=== PATIENT | male | born 1985 | race Caucasian/White ===

== ENCOUNTER 2017-12-22 22:41 | Inpatient (IN) ==
[2017-12-22] MEDS ORDERED: Ondansetron 4 MG/2 ML VIAL IVP ONE (23:01)
[2017-12-22] MEDS ORDERED: 0.9 % Sodium Chloride 1,000 ML IVC ONE (23:01)
[2017-12-22] MEDS ORDERED: Pantoprazole 40 MG VIAL IVP ONE (23:02)
[2017-12-22] MEDS ORDERED: GI Cocktail 40 ML EACH PO ONE (23:02)
--- NOTE | 2017-12-22 23:05 | Emergency Department Note ---
Disposition Clinical Impression: Jaundice, Transaminitis, Hepatitis Abdominal pain Qualifiers: Abdominal location: epigastric Qualified Code(s): R10.13 - Epigastric pain Pancreatitis Qualifiers: Chronicity: acute Pancreatitis type: unspecified pancreatitis type Acute pancreatitis complication: unspecified Qualified Code(s): K85.90 - Acute pancreatitis without necrosis or infection, unspecified Disposition: Admitted As Inpatient Condition: Fair Referrals: NONE,PCP [Primary Care Provider] - Forms: ED Satisfaction Letter, Work/School Release Time of Disposition: 01:07 Abdominal Pain HPI - General Chief Complaint: ED Abdominal Pain Stated Complaint: abdominal pain Time Seen by Provider: 12/22/17 22:50 Source: patient, family Mode of arrival: ambulatory Limitations: no limitations Nursing Notes Reviewed: Yes Vital Signs Reviewed: Yes - History of Present Illness HPI Narrative: 31-year-old male presents for evaluation of abdominal pain. Patient states symptom onsets been over the past 4 days. Patient states nausea vomiting for the past 2 days. Pain is primarily in the epigastrium and does not radiate. Patient denies any diarrhea or constipation. No change in stool color. No chest pain. No fevers. Family states the patient has had yellowing of the face and eyes over the past 3 days. No history of hepatitis. No change in food groups or recent ill contacts. Patient denies history of hepatitis B or C. Does report a history of IV drug use in the past. No history of alcoholism. Patient also states he has history of ulcers in the past but has not followed up with his primary care doctor. Pain Scale: 9 - Related Data Allergies Allergy/AdvReac Type Severity Reaction Status Date / Time No Known Allergies Allergy Verified 12/22/17 22:43 All systems ED: reviewed and negative except as stated. Constitutional: Denies: fever Cardiovascular: Denies: chest pain Respiratory: Denies: cough, dyspnea Gastrointestinal: Reports: abdominal pain, nausea, vomiting. Denies: diarrhea, constipation Abdominal Pain PMH - Past Medical History Medical history: Reports: no medical history Male Surgical History: Reports: herniorrhaphy Psychiatric history: Reports: no psych history - Social History Smoking status: Current every day smoker Alcohol use: Reports: none Drug use: Reports: none Physical Exam - General Limitations: no limitations General appearance: alert, in no apparent distress - Head Head exam: atraumatic, normocephalic, normal inspection - Eye Eye exam: Present: normal appearance, PERRL, EOMI, scleral icterus - ENT ENT exam: normal exam, normal oropharynx, mucous membranes moist, other (Periorbital jaundice) - Neck Neck exam: Present: normal inspection - Chest Chest inspection: Present: normal inspection, symmetric chest wall rise - Respiratory Respiratory exam: Present: normal lung sounds bilaterally. Absent: respiratory distress - Cardiovascular Cardiovascular exam: Present: regular rate, normal rhythm. Absent: systolic murmur - Abdominal Exam Abdominal exam: Present: soft, tenderness. Absent: guarding, rebound - Extremities Exam Extremities exam: Present: normal inspection. Absent: pedal edema - Expanded Lower Extremity Exam Neurovascular/Tendon exam: Present: normal capillary refill - Back Exam Back exam: Present: normal inspection - Neurological Exam Neurological exam: Present: alert, oriented X3, CN II-XII intact - Skin Skin exam: Present: warm, dry, intact, normal color Course Course Narrative: Patient presents for evaluation of abdominal pain. Patient will get basic labs including a hepatic panel as well as a viral hepatitis panel. We will also get symptomatic treatment with a GI cocktail, Zofran upper convex. Disposition pending. - Reevaluation(s) Reevaluation #1: Patient's repeat abdominal exam is unremarkable. Patient's updated on labs and continued evaluation with a gallbladder ultrasound. Time: 00:11 Reevaluation #2: Patient seen and examined. Patient repeat exam is unremarkable. Patient was updated on the fact that he does have hepatitis A and hepatitis C. Patient is agreeable with admission Time: 01:22 Vital Signs Temperature 97.7 F 12/22/17 22:43 Pulse Rate 104 12/22/17 22:43 Respiratory Rate 16 12/22/17 22:43 Blood Pressure 126/89 12/22/17 22:43 O2 Sat by Pulse Oximetry 99 12/22/17 22:43 Temperature 97.7 F 12/22/17 22:43 Pulse Rate 94 12/23/17 00:23 Respiratory Rate 18 12/23/17 00:23 Blood Pressure 146/87 12/23/17 00:23 O2 Sat by Pulse Oximetry 100 12/23/17 00:23 Oxygen Delivery Oxygen Delivery Room Air Abdominal Pain - MDM Narrative Medical decision making narrative: Patient presented for concerns of epigastric and right upper quadrant pain patient's labs are consistent with elevated bilirubin in the setting of pancreatitis. Given the patient's transaminitis elevated bilirubin and pancreatitis the patient will get a gallbladder ultrasound to rule out any obstructive pathology. Would also rule out any evidence of acute cholecystitis. Patient was treated with IV fluids antiemetics and pain control. Patient's labs show hepatitis A as well as hepatitis C. Patient's hep C likely secondary to his IV drug use and tattoos. Patient's ultrasound is consistent with acute viral hepatitis. Patient does not appear to have acute cholecystitis given his degree of inflammation with the transaminitis. Patient will likely require admission for pain control and monitoring of his transaminitis and pancreatitis. - Lab Data Lab results reviewed: Yes I reviewed the patient's lab results. Result diagrams: 12/22/17 23:01 12/22/17 23:01 Lab Results 12/22/17 12/22/17 12/22/17 Range/Units 23:01 23:01 23:02 WBC 7.6 (4.3-11.1) K/mcL RBC 5.41 (4.19-5.50) M/mcL Hgb 14.9 (12.9-16.9) g/dL Hct 43.2 (37.5-50.1) % MCV 79.9 L (83.0-100.0) fL MCH 27.5 L (28.0-33.3) pg MCHC 34.5 (31.6-35.5) g/dL RDW 15.2 H (11.5-14.5) % Plt Count 228 (140-400) K/mcL MPV 10.1 (9.4-12.4) fL Immature Gran % 0.3 (0-4) % Seg Neutrophils % 74.7 % Lymphocytes % 15.9 % Monocytes % 7.3 % Eosinophils % 1.5 % Basophils % 0.3 % Neutrophils # 5.7 (1.6-8.9) K/mcL Lymphocytes # 1.2 (0.6-4.6) K/mcL Monocytes # 0.6 (0.0-1.3) K/mcL Eosinophils # 0.1 (0.0-0.6) K/mcL Basophils # 0.0 (0.0-0.2) K/mcL Sodium 134 L (136-145) mEq/L Potassium 3.3 L (3.5-5.1) mEq/L Chloride 99 (98-107) mEq/L Carbon Dioxide 26 (23-29) mEq/L BUN 10 (6-20) mg/dL Creatinine 0.71 (0.70-1.30) mg/dL Est GFR ( Amer) > 60 (> 60) Est GFR (Non-Af Amer) > 60 (> 60) BUN/Creatinine Ratio 14 (6-26) Glucose 126 H (70-105) mg/dL Calculated Osmolality 279 L (280-300) Calcium 9.1 (8.6-10.3) mg/dL Total Bilirubin 8.4 H (0.3-1.0) mg/dL Direct Bilirubin 5.6 H (0.0-0.2) mg/dL Indirect Bilirubin 2.8 H (0.0-1.2) mg/dL AST 113 H (13-39) Units/L ALT > 500 H (7-52) Units/L Alkaline Phosphatase 375 H (34-104) Units/L Serum Total Protein 6.9 (6.4-8.9) g/dL Albumin 3.7 (3.5-5.7) g/dL Globulin 3.2 (2.4-3.5) g/dL Albumin/Globulin Ratio 1.2 (1.1-2.2) Lipase 120 H (11-82) Units/L Urine Color (Yellow) Urine Clarity (Clear) Urine pH (5.0-8.0) pH Units Ur Specific [place] (1.010-1.025) Urine Protein (Neg-Trace) mg/dL Urine Glucose (UA) (Normal) mg/dL Urine Ketones (Negative) mg/dL Urine Blood (Negative) Urine Nitrite (Negative) Urine Bilirubin (Negative) Urine Urobilinogen (Normal) mg/dL Ur Leukocyte Esterase (Negative) Urine Microscopic RBC (0-3) per hpf Urine Microscopic WBC (0-3) per hpf Ur Squamous Epith Cells (None-Few) per lpf Urine Bacteria (None-Few) per hpf Hyaline Casts (None-Few) per lpf Ur Culture Indicated? (NO) Hepatitis A IgM Ab Reactive H (Nonreactive) Hep Bs Antigen Nonreactive (Nonreactive) Hep B Core IgM Ab Nonreactive (Nonreactive) Hepatitis C Ab Screen Reactive H (Nonreactive) 12/22/17 Range/Units 23:17 WBC (4.3-11.1) K/mcL RBC (4.19-5.50) M/mcL Hgb (12.9-16.9) g/dL Hct (37.5-50.1) % MCV (83.0-100.0) fL MCH (28.0-33.3) pg MCHC (31.6-35.5) g/dL RDW (11.5-14.5) % Plt Count (140-400) K/mcL MPV (9.4-12.4) fL Immature Gran % (0-4) % Seg Neutrophils % % Lymphocytes % % Monocytes % % Eosinophils % % Basophils % % Neutrophils # (1.6-8.9) K/mcL Lymphocytes # (0.6-4.6) K/mcL Monocytes # (0.0-1.3) K/mcL Eosinophils # (0.0-0.6) K/mcL Basophils # (0.0-0.2) K/mcL Sodium (136-145) mEq/L Potassium (3.5-5.1) mEq/L Chloride (98-107) mEq/L Carbon Dioxide (23-29) mEq/L BUN (6-20) mg/dL Creatinine (0.70-1.30) mg/dL Est GFR ( Amer) (> 60) Est GFR (Non-Af Amer) (> 60) BUN/Creatinine Ratio (6-26) Glucose (70-105) mg/dL Calculated Osmolality (280-300) Calcium (8.6-10.3) mg/dL Total Bilirubin (0.3-1.0) mg/dL Direct Bilirubin (0.0-0.2) mg/dL Indirect Bilirubin (0.0-1.2) mg/dL AST (13-39) Units/L ALT (7-52) Units/L Alkaline Phosphatase (34-104) Units/L Serum Total Protein (6.4-8.9) g/dL Albumin (3.5-5.7) g/dL Globulin (2.4-3.5) g/dL Albumin/Globulin Ratio (1.1-2.2) Lipase (11-82) Units/L Urine Color Dark Yellow (Yellow) Urine Clarity Clear (Clear) Urine pH 7.5 (5.0-8.0) pH Units Ur Specific [place] 1.019 (1.010-1.025) Urine Protein Negative (Neg-Trace) mg/dL Urine Glucose (UA) Normal (Normal) mg/dL Urine Ketones Negative (Negative) mg/dL Urine Blood Negative (Negative) Urine Nitrite Negative (Negative) Urine Bilirubin Large H (Negative) Urine Urobilinogen Normal (Normal) mg/dL Ur Leukocyte Esterase Trace H (Negative) Urine Microscopic RBC 0-3 (0-3) per hpf Urine Microscopic WBC 0-3 (0-3) per hpf Ur Squamous Epith Cells None Seen (None-Few) per lpf Urine Bacteria None Seen (None-Few) per hpf Hyaline Casts None Seen (None-Few) per lpf Ur Culture Indicated? YES A (NO) Hepatitis A IgM Ab (Nonreactive) Hep Bs Antigen (Nonreactive) Hep B Core IgM Ab (Nonreactive) Hepatitis C Ab Screen (Nonreactive) - Radiology Data Radiology results reviewed: Yes I reviewed the patient's radiology results. Gallbladder Ultrasound 12/22/17 23:57 IMPRESSION: The gallbladder is incompletely distended. There is relative increased echogenicity surrounding gallbladder, and also surrounding the portal triads. This is a nonspecific finding, and may indicate edematous hepatic parenchyma (such as seen with acute hepatitis). Given the degree of gallbladder wall thickening, and given the punctate filling defects within the gallbladder, acute cholecystitis does remain consideration. Enlarged periportal lymph nodes, probably reactive. Given the findings above, further evaluation with CT of the abdomen pelvis with contrast is recommended. D/ / Avtar Greenberg MD / Avtar Greenberg MD Interpreting Provider: Avtar Greenberg MD S.BGenaro - SAndreina Situation: Demographics Background: Presenting Complaint Assessment: Vital Signs, Course and respsone to treatment, Patient/Family Expectation Recommendation: Barrier(s) to disposition, Recommendation based on pending studies, treatments, or consults S.B.A.RMarianela Report Given to: Dr. Rita Otoole Repor Time: 01:22
[2017-12-22 23:28] LABS: Basophils % 0.3 %; Eosinophils # 0.1 K/mcL (0.0-0.6); Eosinophils % 1.5 %; Hematocrit 43.2 % (37.5-50.1); Hemoglobin 14.9 g/dL (12.9-16.9); Immature Granulocytes % 0.3 % (0-4); Lymphocytes # 1.2 K/mcL (0.6-4.6); Lymphocytes % 15.9 %; Mean Corpuscular HGB Conc 34.5 g/dL (31.6-35.5); Mean Corpuscular Hemoglobin 27.5 pg (28.0-33.3); Mean Corpuscular Volume 79.9 fL (83.0-100.0); Mean Platelet Volume 10.1 fL (9.4-12.4); Monocytes # 0.6 K/mcL (0.0-1.3); Monocytes % 7.3 %; Neutrophils # 5.7 K/mcL (1.6-8.9); Platelet Count 228 K/mcL (140-400); Red Blood Count 5.41 M/mcL (4.19-5.50); Red Cell Distribution Width 15.2 % (11.5-14.5); Segmented Neutrophils % 74.7 %
[2017-12-22 23:30] LABS: Bilirubin,Urine Large (Negative); Blood,Urine Negative (Negative); Clarity,Urine Clear (Clear); Color,Urine Dark Yellow (Yellow); Glucose,Urine (UA) Normal (Normal); Ketones,Urine Negative (Negative); Leukocyte Esterase,Urine Trace (Negative); Nitrite,Urine Negative (Negative); PH,Urine 7.5 pH Units (5.0-8.0); Protein,Urine Negative (Neg-Trace); Specific Gravity,Urine 1.019 (1.010-1.025); Urobilinogen,Urine Normal (Normal)
[2017-12-22 23:33] LABS: Bacteria,Urine None Seen per hpf (None-Few); Hyaline Casts,Urine None Seen per lpf (None-Few); RBC,Urine 0-3 per hpf (0-3); Squamous Epithelial Cell,Urine None Seen per lpf (None-Few); WBC,Urine 0-3 per hpf (0-3)
[2017-12-22 23:53] LABS: Alanine Aminotransferase > 500 Units/L (7-52); Albumin 3.7 g/dL (3.5-5.7); Albumin/Globulin Ratio 1.2 (1.1-2.2); Alkaline Phosphatase 375 Units/L (34-104); Aspartate Amino Transferase 113 Units/L (13-39); BUN/Creatinine Ratio 14 (6-26); Bilirubin,Direct 5.6 mg/dL (0.0-0.2); Bilirubin,Indirect 2.8 mg/dL (0.0-1.2); Bilirubin,Total 8.4 mg/dL (0.3-1.0); Blood Urea Nitrogen 10 mg/dL (6-20); Calcium 9.1 mg/dL (8.6-10.3); Carbon Dioxide 26 mEq/L (23-29); Chloride 99 mEq/L (98-107); Globulin 3.2 g/dL (2.4-3.5); Glucose 126 mg/dL (70-105); Lipase 120 Units/L (11-82); Osmolality,Calculated 279 (280-300); Potassium 3.3 mEq/L (3.5-5.1); Sodium 134 mEq/L (136-145); Total Protein 6.9 g/dL (6.4-8.9); eGFR For Non-African Americans > 60 (> 60)
[2017-12-23] MEDS ORDERED: *HR* FentaNYL (PF) 100 MCG/2 ML VIAL IVP ONE ×2 (00:02→02:03)
--- NOTE | 2017-12-23 00:12 | Emergency Department Note ---
Disposition Clinical Impression: Jaundice Abdominal pain Qualifiers: Abdominal location: epigastric Qualified Code(s): R10.13 - Epigastric pain Pancreatitis Qualifiers: Chronicity: acute Pancreatitis type: unspecified pancreatitis type Acute pancreatitis complication: unspecified Qualified Code(s): K85.90 - Acute pancreatitis without necrosis or infection, unspecified Disposition: Still a Patient Referrals: NONE,PCP [Primary Care Provider] - Forms: ED Satisfaction Letter, Work/School Release General Adult HPI - General Chief complaint: ED Abdominal Pain Stated complaint: abdominal pain Time Seen by Provider: 12/22/17 22:50 Source: patient, family Mode of arrival: ambulatory Limitations: no limitations - History of Present Illness Pain Scale: 9 - Related Data Allergies Allergy/AdvReac Type Severity Reaction Status Date / Time No Known Allergies Allergy Verified 12/22/17 22:43 Constitutional: Denies: fever Cardiovascular: Denies: chest pain Respiratory: Denies: cough, dyspnea Gastrointestinal: Reports: abdominal pain, nausea, vomiting. Denies: diarrhea, constipation Past Medical History - Past Medical History Medical history: Reports: no medical history Psychiatric history: Reports: no psych history - Social History Smoking Status: Current every day smoker Alcohol use: Reports: none Drug use: Reports: none Physical Exam - General Limitations: no limitations General appearance: alert, in no apparent distress Course Vital Signs Temperature 97.7 F 12/22/17 22:43 Pulse Rate 104 12/22/17 22:43 Respiratory Rate 16 12/22/17 22:43 Blood Pressure 126/89 12/22/17 22:43 O2 Sat by Pulse Oximetry 99 12/22/17 22:43 Temperature 97.7 F 12/22/17 22:43 Pulse Rate 102 12/22/17 22:53 Respiratory Rate 18 12/22/17 22:53 Blood Pressure 146/87 12/22/17 22:53 O2 Sat by Pulse Oximetry 100 12/22/17 22:53 Oxygen Delivery Oxygen Delivery Room Air Medical Decision Making - Lab Data Result diagrams: 12/22/17 23:01 12/22/17 23:01 Lab Results 12/22/17 12/22/17 12/22/17 Range/Units 23:01 23:01 23:17 WBC 7.6 (4.3-11.1) K/mcL RBC 5.41 (4.19-5.50) M/mcL Hgb 14.9 (12.9-16.9) g/dL Hct 43.2 (37.5-50.1) % MCV 79.9 L (83.0-100.0) fL MCH 27.5 L (28.0-33.3) pg MCHC 34.5 (31.6-35.5) g/dL RDW 15.2 H (11.5-14.5) % Plt Count 228 (140-400) K/mcL MPV 10.1 (9.4-12.4) fL Immature Gran % 0.3 (0-4) % Seg Neutrophils % 74.7 % Lymphocytes % 15.9 % Monocytes % 7.3 % Eosinophils % 1.5 % Basophils % 0.3 % Neutrophils # 5.7 (1.6-8.9) K/mcL Lymphocytes # 1.2 (0.6-4.6) K/mcL Monocytes # 0.6 (0.0-1.3) K/mcL Eosinophils # 0.1 (0.0-0.6) K/mcL Basophils # 0.0 (0.0-0.2) K/mcL Sodium 134 L (136-145) mEq/L Potassium 3.3 L (3.5-5.1) mEq/L Chloride 99 (98-107) mEq/L Carbon Dioxide 26 (23-29) mEq/L BUN 10 (6-20) mg/dL Creatinine 0.71 (0.70-1.30) mg/dL Est GFR ( Amer) > 60 (> 60) Est GFR (Non-Af Amer) > 60 (> 60) BUN/Creatinine Ratio 14 (6-26) Glucose 126 H (70-105) mg/dL Calculated Osmolality 279 L (280-300) Calcium 9.1 (8.6-10.3) mg/dL Total Bilirubin 8.4 H (0.3-1.0) mg/dL Direct Bilirubin 5.6 H (0.0-0.2) mg/dL Indirect Bilirubin 2.8 H (0.0-1.2) mg/dL AST 113 H (13-39) Units/L ALT > 500 H (7-52) Units/L Alkaline Phosphatase 375 H (34-104) Units/L Serum Total Protein 6.9 (6.4-8.9) g/dL Albumin 3.7 (3.5-5.7) g/dL Globulin 3.2 (2.4-3.5) g/dL Albumin/Globulin Ratio 1.2 (1.1-2.2) Lipase 120 H (11-82) Units/L Urine Color Dark Yellow (Yellow) Urine Clarity Clear (Clear) Urine pH 7.5 (5.0-8.0) pH Units Ur Specific [place] 1.019 (1.010-1.025) Urine Protein Negative (Neg-Trace) mg/dL Urine Glucose (UA) Normal (Normal) mg/dL Urine Ketones Negative (Negative) mg/dL Urine Blood Negative (Negative) Urine Nitrite Negative (Negative) Urine Bilirubin Large H (Negative) Urine Urobilinogen Normal (Normal) mg/dL Ur Leukocyte Esterase Trace H (Negative) Urine Microscopic RBC 0-3 (0-3) per hpf Urine Microscopic WBC 0-3 (0-3) per hpf Ur Squamous Epith Cells None Seen (None-Few) per lpf Urine Bacteria None Seen (None-Few) per hpf Hyaline Casts None Seen (None-Few) per lpf Ur Culture Indicated? YES A (NO) Attestation Statement - Attestation Attestation: I examined this patient and my medical decision-making was reviewed with the Resident Physician. I agree with the documented findings, disposition and treatment plan as described except to the extent set forth below. 31 year old male presents to the eD with complaints of abdominal pain and appears to have scleral icterus and states that this is the first time and was a previos IVDA but to his knowledge does not have hepatitis. PAtient is having increased abdominal/epigasric pain and has elevatd LFTS and bili and lipase. We will obtain galbladder US for futher evaluation. This patinet [facility] for followup on US and possible need for [facility]
[2017-12-23 00:41] LABS: Hepatitis B Core IgM Nonreactive (Nonreactive); Hepatitis B Surface Antigen Nonreactive (Nonreactive)
[2017-12-23 00:45] LABS: Hepatitis A Antibody IgM Reactive (Nonreactive)
[2017-12-23 00:47] LABS: Hepatitis C Virus Antibody Reactive (Nonreactive)
[2017-12-23] MEDS ORDERED: Naloxone 0.4 MG/ML INJ IVP PRN (02:16)
--- NOTE | 2017-12-23 02:21 | Internal Med History&Physical ---
Date of Encounter: 12/23/17 Time of Encounter: 02:20 Internal Medicine - H&P: HPI Chief complaint: Abdominal Pain History of present illness: Mr. Perez is a 31 year old male with a past medical history of IV drug abuse who presents with abdominal pain. Patient states that symptoms began approximately 4-5 days ago when he noted epigastric pain that was nonradiating, sharp in quality and intermittent. Symptoms were exacerbated with food causing nausea and vomiting shortly thereafter. Patient states that after 2 days he was able to tolerate PO intake and began feeling better. However, Family noted yellowing of the face and eyes over the past 3 days. He reports 1 episode of diarrhea earlier today. Patient is not currently on any medications and denies recent dr ug use. States that he took IV heroin in the past with the last time being about a year ago. Patient denies any sick contacts. No recent travel. Initial laboratory results were significant for an elevated LFTs and mildly elevated lipase. Hep panel was ordered which came back positive for acute hepatitis A and hepatitis C. Past Med Surg Social Fam HX - Past Medical History Medical history: no medical history Psychiatric history: no psych history - Past Surgical History Additional surgical history: hemroid sx - Social History Smoking Status: Current every day smoker Alcohol use: none Drug use: none Internal Medicine - H&P: Meds Allergy/AdvReac Type Severity Reaction Status Date / Time No Known Allergies Allergy Verified 12/22/17 22:43 All Systems PM: A 10-system review of systems was performed and is negative for pertinent findings except as documented above in the HPI. - Constitutional Constitutional: no chills, no fever(s), no night sweats - EENT Eyes: no change in vision, no discharge, no pain, no photophobia Ears: no ear discharge, no ear pain, no tinnitus Nose, mouth and throat: no dysphagia, no nasal discharge, no neck pain, no sore throat - Cardiovascular Cardiovascular ROS IM: no chest pain, no diaphoresis, no dyspnea, no lightheadedness, no palpitations, no syncope - Respiratory Respiratory: no cough, no dyspnea, no wheezing, no excessive phlegm production - Gastrointestinal Gastrointestinal: no abdominal pain, no diarrhea, no hematemesis, no hematochezia, no melena, no nausea, no vomiting - Musculoskeletal Musculoskeletal ROS IM: no numbness, no tingling - Integumentary Integumentary IM: no rash, no unusual bruising - Neurological Neurological ROS: no confusion, no convulsions, no focal weakness, no numbness, no tingling, no tremor(s) - Hematologic/Lymphatic Hematologic/Lymphatic: no easy bruising - Constitutional Vitals: Temp Pulse Resp BP Pulse Ox 97.7 F 94 18 140/84 100 12/22/17 22:43 12/23/17 00:23 12/23/17 01:53 12/23/17 01:53 12/23/17 00:23 Exam: General: Alert and oriented 3 lying in bed in no acute distress Skin:Normal color, no rash, no lesions. HEENT:EOM, pupils equal, round and reactive. Sclera icteric Cardiovascular:Normal S1 & S2, no rubs, murmurs or gallops. No JVD. Pulse regular. Lungs:Normal breath sounds, no wheezes or crackles. Abdomen:Soft, tenderness to palpation in the epigastric and right upper quadrant region. No rebound or guarding. Extremities:No deformity, no edema or tenderness, no joint swelling or clubbing. Neurological:Normal cognition and motor skills. Pulses:Carotid and radial pulses normal +2. Rest of the physical exam is non contributory Internal Med - H&P Results - Labs CBC & Chem 7: 12/23/17 03:26 12/23/17 03:26 Labs: Short CBC 12/22/17 Range/Units 23:01 WBC 7.6 (4.3-11.1) K/mcL Hgb 14.9 (12.9-16.9) g/dL Hct 43.2 (37.5-50.1) % Plt Count 228 (140-400) K/mcL Neutrophils # 5.7 (1.6-8.9) K/mcL BMP 12/22/17 23:01 Sodium 134 L Potassium 3.3 L Chloride 99 Carbon Dioxide 26 BUN 10 Creatinine 0.71 Glucose 126 H Calcium 9.1 Liver Function 12/22/17 Range/Units 23:01 Total Bilirubin 8.4 H (0.3-1.0) mg/dL Direct Bilirubin 5.6 H (0.0-0.2) mg/dL AST 113 H (13-39) Units/L ALT > 500 H (7-52) Units/L Alkaline Phosphatase 375 H (34-104) Units/L Albumin 3.7 (3.5-5.7) g/dL Urine 12/22/17 Range/Units 23:17 Urine Color Dark Yellow (Yellow) Urine Clarity Clear (Clear) Urine pH 7.5 (5.0-8.0) pH Units Ur Specific [place] 1.019 (1.010-1.025) Urine Protein Negative (Neg-Trace) mg/dL Urine Glucose (UA) Normal (Normal) mg/dL - Impressions ITS Impressions Gallbladder Ultrasound 12/22/17 23:57 IMPRESSION: The gallbladder is incompletely distended. There is relative increased echogenicity surrounding gallbladder, and also surrounding the portal triads. This is a nonspecific finding, and may indicate edematous hepatic parenchyma (such as seen with acute hepatitis). Given the degree of gallbladder wall thickening, and given the punctate filling defects within the gallbladder, acute cholecystitis does remain consideration. Enlarged periportal lymph nodes, probably reactive. Given the findings above, further evaluation with CT of the abdomen pelvis with contrast is recommended. D/ / Avtar Greenberg MD / Avtar Greenberg MD Interpreting Provider: Avtar Greenberg MD - Assessment and plan (1) Abdominal pain Status: Acute Assessment and plan: Abdominal pain involving the epigastrium and right upper quadrant likely sec ondary to acute Hepatitis A. Patient also tested positive for hepatitis C which may be chronic in the setting of previous IV drug abuse. A right upper quadrant ultrasound was performed which showed an incompletely distended gallbladder with relative increased echogenicity surrounding the gallbladder with punctate filling defects within the gallbladder. Per radiology reported acute cholecystitis remains a consideration. We will obtain a CT of the abdomen and pelvis with contrast to further assess biliary disease and the possibility of mild acute pancreatitis given the elevation in lipase levels. We will keep patient nothing by mouth for now and obtain GI consult in the morning for furthe r assessment and establish plan for care for treatment of his hepatitis C prior to discharge Qualifiers: Abdominal location: epigastric Qualified Code(s): R10.13 - Epigastric pain (2) Hepatitis Status: Acute Assessment and plan: Elevated LFTs with positive serology for acute hepatitis A and positive serology for hepatitis C. Given concomitant infection increased risk of fulminant liver failure. We will monitor and repeat LFTs and continue supportive care. GI consult in the morning.. (3) Jaundice Status: Acute Assessment and plan: Jaundice with an elevated total bilirubin of 8.4 with a predominant direct hyperbilirubinemia in the setting of acute hepatitis A and hepatitis C infection. At this time cannot scalp possibility of acute cholecystitis. Low suspicion for pancreatitis given mild elevation in lipase and atypical presentation. Will obtain a CT of the abdomen and pelvis for further evaluation. (4) Transaminitis Status: Acute Assessment and plan: See above (5) DVT prophylaxis Status: Acute - Time Spent With Patient Total time spent is greater than 50% in coordination of care (as documented) at patient's floor/unit and/or counseling patient:
[2017-12-23] MEDS ORDERED: 0.9 % Sodium Chloride 1,000 ML IVC SCH (02:30)
[2017-12-23 04:02] LABS: Basophils % 0.2 %; Eosinophils % 0.7 %; Hematocrit 41.3 % (37.5-50.1); Hemoglobin 14.1 g/dL (12.9-16.9); Immature Granulocytes % 0.5 % (0-4); Lymphocytes # 1.3 K/mcL (0.6-4.6); Lymphocytes % 20.5 %; Mean Corpuscular HGB Conc 34.1 g/dL (31.6-35.5); Mean Corpuscular Hemoglobin 27.6 pg (28.0-33.3); Mean Corpuscular Volume 80.8 fL (83.0-100.0); Mean Platelet Volume 9.8 fL (9.4-12.4); Monocytes # 0.5 K/mcL (0.0-1.3); Monocytes % 7.5 %; Neutrophils # 4.3 K/mcL (1.6-8.9); Platelet Count 210 K/mcL (140-400); Red Blood Count 5.11 M/mcL (4.19-5.50); Red Cell Distribution Width 15.2 % (11.5-14.5); Segmented Neutrophils % 70.6 %
[2017-12-23] MEDS ORDERED: Isovue-370 500 ML INFUS..BTL IV ONE (04:03)
[2017-12-23 04:34] LABS: INR 1.1; Prothrombin Time 12.4 Seconds (9.4-12.1)
[2017-12-23 05:01] VITALS: BP 119/81
[2017-12-23 05:07] LABS: Troponin I < 0.03 ng/mL (< 0.04)
[2017-12-23] MEDS ORDERED: Ketorolac 30 MG/ML VIAL IVP PRN (05:12)
[2017-12-23 07:58] LABS: Alanine Aminotransferase > 500 Units/L (7-52); Albumin 3.2 g/dL (3.5-5.7); Albumin/Globulin Ratio 1.1 (1.1-2.2); Alkaline Phosphatase 329 Units/L (34-104); Aspartate Amino Transferase 89 Units/L (13-39); BUN/Creatinine Ratio 15 (6-26); Bilirubin,Total 7.4 mg/dL (0.3-1.0); Blood Urea Nitrogen 9 mg/dL (6-20); Calcium 8.5 mg/dL (8.6-10.3); Carbon Dioxide 23 mEq/L (23-29); Chloride 106 mEq/L (98-107); Glucose 125 mg/dL (70-105); Osmolality,Calculated 282 (280-300); Potassium 3.5 mEq/L (3.5-5.1); Sodium 136 mEq/L (136-145); Total Protein 6.2 g/dL (6.4-8.9); eGFR For Non-African Americans > 60 (> 60)
[2017-12-23] MEDS ORDERED: *HR* Heparin 5,000 UNIT/ML VIAL SQ SCH (08:00)
== END 2017-12-23 08:19 | disposition left against medical advice (07) ==
LOC: EMEROOARM 22:41 → 3ANU 22:41 → SUATTDRO 12-23 02:16
PROVIDERS: ADMIT Internal Medicine; ATTEND Internal Medicine